=== PATIENT | male | born 1985 | race Caucasian/White ===

== ENCOUNTER 2019-06-04 21:51 | Emergency (ER) | payer MEDICARE, MEDICAID ==
[2019-06-04 22:42] LABS: ABSOLUTE BASOPHILS # (AUTO) 0.1 10^3/uL (0.0-0.2); ABSOLUTE EOSINOPHILS # (AUTO) 0.4 10^3/uL (0.0-0.6); ABSOLUTE LYMPHOCYTES (AUTO) 3.7 10^3/uL (0.5-4.7); ABSOLUTE MONOCYTES (AUTO) 0.6 10^3/uL (0.1-1.4); ABSOLUTE NEUT (AUTO) 5.2 10^3/uL (1.7-8.2); BASOPHILS % (AUTO) 0.6 % (0-2); EOSINOPHILS % (AUTO) 3.6 % (0-6); HEMOGLOBIN 16.2 g/dL (13.5-17.0); LYMPHOCYTES % (AUTO) 37.7 % (13-45); MEAN CORPUSCULAR HEMOGLOBIN 32.7 pg (27.0-33.4); MEAN CORPUSCULAR HGB CONC 35.3 g/dL (32.0-36.0); MEAN CORPUSCULAR VOLUME 93 fl (80-97); MONOCYTES % (AUTO) 5.6 % (3-13); PLATELET COUNT 233 10^3/uL (150-450); RED BLOOD COUNT 4.96 10^6/uL (4.35-5.55); RED CELL DISTRIBUTION WIDTH 13.7 % (11.5-14.0); SEGMENTED NEUTROPHILS % (AUTO) 52.5 % (42-78); TOTAL CELLS COUNTED % (AUTO) 100 %; WHITE BLOOD COUNT 9.8 10^3/uL (4.0-10.5)
[2019-06-04 23:00] LABS: ALBUMIN 4.8 g/dL (3.5-5.0); ALKALINE PHOSPHATASE 104 U/L (38-126); ANION GAP 10 (5-19); ASPARTATE AMINO TRANSFERASE 28 U/L (17-59); BILIRUBIN,DIRECT 0.2 mg/dL (0.0-0.4); BILIRUBIN,TOTAL 1.5 mg/dL (0.2-1.3); BLOOD UREA NITROGEN 13 mg/dL (7-20); CALCIUM 9.8 mg/dL (8.4-10.2); CARBON DIOXIDE 26 mmol/L (22-30); CHLORIDE 105 mmol/L (98-107); CREATINE KINASE 302 U/L (55-170); GLUCOSE 93 mg/dL (75-110); TOTAL PROTEIN 7.5 g/dL (6.3-8.2)
[2019-06-04 23:11] LABS: CREATINE KINASE MB 1.55 ng/mL (<4.55)
[2019-06-04 23:16] LABS: TROPONIN I < 0.012 ng/mL
--- NOTE | 2019-06-05 03:35 | ER Document Report ---
ED Cardiac - General Chief Complaint: Chest Pain Stated Complaint: CHEST PAIN Time Seen by Provider: 06/04/19 23:40 Primary Care Provider: CARIN CROWE MD [Primary Care Provider] - Follow up as needed Notes: 33-year-old male with history of PTSD, acid reflux and multiple musculoskeletal issues presents to the emergency department with chief complaint of chest pain that started just prior to arrival. Patient states pain is located in his left chest, did not radiate, is sharp and stabbing rated 8/10, and was constant. Nothing relieved the pain or made it worse. Patient states that he tried to take a shower but the pain was so intense that he decided to seek treatment in the emergency department. Patient had associated nausea, was clammy, denies shortness of breath or dyspnea, no known family history because he was adopted. No other complaints - Related Data Allergies/Adverse Reactions: ziprasidone [From Geodon] Allergy (Verified 06/04/19 22:05) Past Medical History - Social History Smoking Status: Unknown if Ever Smoked Family History: None Patient has suicidal ideation: No Patient has homicidal ideation: No Review of Systems - Review of Systems Constitutional: See HPI EENT: No symptoms reported Cardiovascular: See HPI Respiratory: See HPI Gastrointestinal: See HPI Genitourinary: No symptoms reported Male Genitourinary: No symptoms reported Musculoskeletal: No symptoms reported Skin: No symptoms reported Hematologic/Lymphatic: No symptoms reported Neurological/Psychological: No symptoms reported Physical Exam - Vital signs Vitals: Pulse Ox 100 06/05/19 00:50 - Notes Notes: PHYSICAL EXAMINATION: Reviewed vital signs and charting by RN GENERAL: Alert, interacts well. No acute distress. HEAD: Normocephalic, atraumatic. EYES: Pupils equal and round. Extraocular movements intact. ENT: Oral mucosa moist, tongue midline. NECK: Full range of motion. Trachea midline. LUNGS: End expiratory wheezing in all lazcano, no rales or rhonchi.. No respiratory distress. HEART: Regular rate and rhythm. No murmur ABDOMEN: soft, non-tender. No distention. Bowel sounds present EXTREMITIES: Moves all 4 extremities spontaneously. No edema, No cyanosis. PSYCH: Normal affect, normal mood. SKIN: Warm, dry, normal turgor. No rashes or lesions noted. Course - Re-evaluation Re-evalutation: 06/05/19 03:35 Presentation of chest pain in an otherwise well appearing patient. Low clinical suspicion for ACS given clinical history, exam, EKG without ST elevations or depressions, and negative initial troponin. HEART score less than or equal to 3. PE also seems unlikely given clinical history, absence of tachycardia or dyspnea. Patient is PERC criteria negative. CXR without evidence of pneumothorax or pneumonia. No widened mediastinum. Aortic dissection also seems unlikely given history, symmetric pulses, CXR, and vitals. Heart score 0. - Vital Signs Vital signs: Temp Pulse Resp BP Pulse Ox 22 H 97 06/05/19 01:01 06/05/19 01:01 - Laboratory Result Diagrams: 06/04/19 22:15 06/04/19 22:15 Laboratory results interpreted by me: 06/04/19 22:15 Total Bilirubin 1.5 H Creatine Kinase 302 H Discharge - Discharge Clinical Impression: Wheezing Chest pain Qualifiers: Chest pain type: unspecified Qualified Code(s): R07.9 - Chest pain, unspecified Condition: Good Disposition: HOME, SELF-CARE Additional Instructions: You were seen today for chest pain. The exact cause of your pain is unclear. However, based on your cardiac enzyme testing, chest x-ray, and EKG it does not appear that it is from an immediately life-threatening cause at this time. Although your testing here is normal is critical that you follow-up with your primary care physician for continued evaluation of this chest pain and possible stress testing. I recommended you see your physician within the next 24-48 hours to be evaluated for consideration of a stress test. Please return to emergency department immediately if you have worsening of your chest pain, shortness of breath, vomiting, become unable to exert yourself due to pain or difficulty breathing, you pass out, or have any pain that radiates into your arms, jaw, or back. Please also return if you have any additional symptoms that are concerning to you. Referrals: CARIN CROWE MD [Primary Care Provider] - Follow up as needed
[2019-06-05 03:50] VITALS: BP 110/72
--- NOTE | 2019-06-05 12:21 | EKG REPORT ---
SEVERITY:- NORMAL ECG - SINUS RHYTHM : Confirmed by: Dragan Brooke 05-Jun-2019 12:21:22
== END 2019-06-05 03:50 | disposition home or self-care (01) ==
LOC: ER 21:51
DX: R06.2 Wheezing (principal); R07.9 Chest pain, unspecified; F43.10 Post-traumatic stress disorder, unspecified
CPT/HCPCS: 36415; 80053; 82550; 82553; 84484; 85025; 93005; 93010; 99285